=== PATIENT | male | born 1985 | race Asian ===

== ENCOUNTER 2018-07-28 01:27 | Emergency (ER) | payer MEDICAID ==
[~2018-07-28] VITALS: Ht 177.8 cm; Wt 99.8 kg
== END 2018-07-28 03:52 | disposition home or self-care (01) ==
LOC: SED 01:27
DX: J20.9 Acute bronchitis, unspecified (principal); J45.909 Unspecified asthma, uncomplicated; F17.200 Nicotine dependence, unspecified, uncomplicated
CPT/HCPCS: 99283